=== PATIENT | female | born 1935 | race Caucasian/White ===

== ENCOUNTER 2021-05-24 20:09 | Emergency (ER) | payer MEDICARE, OTHER ==
[~2021-05-24] VITALS: Ht 157.5 cm; Wt 68.0 kg
[~2021-05-24 20:09] MED LIST: AMIO200T5 PO; ATOR20TA PO; CLON-418 PO; DIGO125T20 PO; ESOM40CA PO; FURO-145 PO; SOLI5TAB2 PO
[2021-05-24 20:22] VITALS: BP 173/108
--- NOTE | 2021-05-24 20:28 | NUR ---
VALERIERA 59 FROM HOME FOR C/O HIGH BP. -H/A, - DIZZINESS, -CP. PATIENT ALERT AND ORIENTED X3. AMBULATORY WITH NON LABORED BREATHING PLACED IN BED 2 ON MONITOR.
--- NOTE | 2021-05-24 21:36 | NUR ---
Patient discharged to home in stable condition. Written and verbal after care instructions given. Patient verbalizes understanding of instruction. PICKED UP BY
== END 2021-05-24 22:35 | disposition home or self-care (01) ==
LOC: ER 20:22
DX: R03.0 Elevated blood-pressure reading, without diagnosis of hypertension (principal); R42 Dizziness and giddiness; I10 Essential (primary) hypertension; I48.91 Unspecified atrial fibrillation; K21.9 Gastro-esophageal reflux disease without esophagitis; R32 Unspecified urinary incontinence; E11.9 Type 2 diabetes mellitus without complications; Z79.811 Long term (current) use of aromatase inhibitors; Z79.02 Long term (current) use of antithrombotics/antiplatelets; Z79.810 Long term (current) use of selective estrogen receptor modulators (SERMs); Z79.01 Long term (current) use of anticoagulants; Z79.899 Other long term (current) drug therapy